=== PATIENT | female | born 1975 | race Caucasian/White ===

== ENCOUNTER 2017-03-25 17:25 | Emergency (ER) | payer OTHER ==
[~2017-03-25] VITALS: Ht 170.2 cm; Wt 77.0 kg
[~2017-03-25 17:25] MED LIST: CELE20TA PO
[2017-03-25 17:42] VITALS: BP 131/72; PULSE 72; RESP 16; TEMP 99; O2SAT 100
--- NOTE | 2017-03-25 18:42 | PD ---
HPI Chief Complaint: Musculoskeletal Complaint Time Seen by Provider: 18:37 Travel History International Travel<30 days: No Contact w/Intl Traveler<30days: No Traveled to known affect area: No History of Present Illness HPI Patient presents with complaints of nighttime muscle cramping. Denies any nausea vomiting or diarrhea or other cause for a loss of electrolytes. Additionally reports concerns of lymph nodes in the right axillary and right hip. Denies fever. Positive sick contacts. No new rashes. Denies any new chest pain shortness of breath urinary or bowel symptoms. History of gastric sleeve. PFSH Past Medical History Anxiety: No Depression: Yes Heart Rhythm Problems: No Cancer: No Cardiovascular Problems: Yes High Cholesterol: No Chemotherapy: No Chest Pain: No Congestive Heart Failure: No Diminished Hearing: No Endocrine: No Genitourinary: No Hypertension: Yes Immune Disorder: No Musculoskeletal: No Neurologic: No Psychiatric: Yes Reproductive: No Respiratory: No Radiation Therapy: No Influenza Vaccination: No ?: Not : 4 Para: 4 Past Surgical History Abdominal Surgery: Yes (GASTRIC SLEAVE 07/2016) Appendectomy: Yes Section: Yes (1 ) Cholecystectomy: Yes Gynecologic Surgery: Yes (C SECTION X 1) Other Surgery: Yes (APPENDECTOMY) Social History Alcohol Use: Yes Tobacco Use: Yes Substance Use: No Allergies-Medications (Allergen,Severity, Reaction): Coded Allergies: No Known Allergies (Unverified Adverse Reaction, Unknown, 03/25/17) Reported Meds & Prescriptions Reported Meds & Active Scripts Active No Active Prescriptions or Reported Medications Review of Systems General / Constitutional: No: Fever Eyes: No: Visual changes HENT: No: Headaches Cardiovascular: No: Chest Pain or Discomfort Respiratory: No: Shortness of Breath Gastrointestinal: No: Abdominal Pain Genitourinary: No: Dysuria Musculoskeletal: No: Pain Skin: No Rash Neurologic: No: Weakness Psychiatric: No: Depression Endocrine: No: Polydipsia Hematologic/Lymphatic: No: Easy Bruising Physical Exam Narrative GENERAL: Well-nourished, well-developed patient. SKIN: Focused skin assessment warm/dry. HEAD: Normocephalic. Examination of the right axillary region and right hip reveals no palpable lymph nodes erythema edema or tenderness EYES: No scleral icterus. No injection or drainage. NECK: Supple, trachea midline. No JVD or lymphadenopathy. CARDIOVASCULAR: Regular rate and rhythm without murmurs, gallops, or rubs. RESPIRATORY: Breath sounds equal bilaterally. No accessory muscle use. GASTROINTESTINAL: Abdomen soft, non-tender, nondistended. MUSCULOSKELETAL: No cyanosis, or edema. BACK: Nontender without obvious deformity. No CVA tenderness. Data Data Last Documented VS Vital Signs Date Time Temp Pulse Resp B/P (MAP) Pulse Ox O2 Delivery O2 Flow Rate FiO2 03/25/17 17:42 99.0 72 16 131/72 (91) 100 Orders Orders Complete Blood Count With Diff (03/25/17 18:37) Comprehensive Metabolic Panel (03/25/17 18:37) Sodium Chlor 0.9% 1000 Ml Inj (Ns 1000 M (03/25/17 18:45) Cyclobenzaprine (Flexeril) (03/25/17 19:15) Ketorolac Inj (Toradol Inj) (03/25/17 19:15) MDM Medical Decision Making Medical Screen Exam Complete: Yes Emergency Medical Condition: Yes Differential Diagnosis Muscle spasms, lymphadenopathy, right hip osteoarthritis, right shoulder osteoarthritis Narrative Course Assessment and plan discussed with patient and at bedside. Discussed the use of tonic water with quinine however patient is restricted from carbonated fluids. Discussed treatment of osteoarthritis. Patient is restricted from NSAID use. Physician Communication Physician Communication Case discussed and care transferred to Dr. Thalia Brock No Active Prescriptions or Reported Meds Isac Razo MD Mar 25, 2017 18:42
[2017-03-25] MEDS ORDERED: SODIUM CHLOR 0.9% 1000 ML INJ 1,000 ML IV ONE (18:45)
--- NOTE | 2017-03-25 19:11 | PD ---
Physical Exam Date Seen by Provider: Mar 25, 2017 Time Seen by Provider: 19:10 Narrative Accepted in transfer of care from Dr. Razo Data Data Last Documented VS Vital Signs Date Time Temp Pulse Resp B/P (MAP) Pulse Ox O2 Delivery O2 Flow Rate FiO2 03/25/17 20:03 83 16 133/65 (87) 99 Room Air 03/25/17 17:42 99.0 Orders Orders Complete Blood Count With Diff (03/25/17 18:37) Comprehensive Metabolic Panel (03/25/17 18:37) Sodium Chlor 0.9% 1000 Ml Inj (Ns 1000 M (03/25/17 18:45) Cyclobenzaprine (Flexeril) (03/25/17 19:15) Ketorolac Inj (Toradol Inj) (03/25/17 19:15) Ed Discharge Order (03/25/17 20:20) Calcium Carbonate Chew (Tums Chew) (03/25/17 20:30) Labs Laboratory Tests Test 03/25/17 18:55 White Blood Count 7.7 TH/MM3 Red Blood Count 4.74 MIL/MM3 Hemoglobin 12.2 GM/DL Hematocrit 37.9 % Mean Corpuscular Volume 79.9 FL Mean Corpuscular Hemoglobin 25.8 PG Mean Corpuscular Hemoglobin Concent 32.3 % Red Cell Distribution Width 16.0 % Platelet Count 257 TH/MM3 Mean Platelet Volume 8.0 FL Neutrophils (%) (Auto) 54.6 % Lymphocytes (%) (Auto) 35.3 % Monocytes (%) (Auto) 7.3 % Eosinophils (%) (Auto) 2.3 % Basophils (%) (Auto) 0.5 % Neutrophils # (Auto) 4.2 TH/MM3 Lymphocytes # (Auto) 2.7 TH/MM3 Monocytes # (Auto) 0.6 TH/MM3 Eosinophils # (Auto) 0.2 TH/MM3 Basophils # (Auto) 0.0 TH/MM3 CBC Comment DIFF FINAL Differential Comment Blood Urea Nitrogen 21 MG/DL Creatinine 0.65 MG/DL Random Glucose 81 MG/DL Total Protein 6.7 GM/DL Albumin 3.5 GM/DL Calcium Level 8.2 MG/DL Alkaline Phosphatase 59 U/L Aspartate Amino Transf (AST/SGOT) 10 U/L Alanine Aminotransferase (ALT/SGPT) 11 U/L Total Bilirubin 0.8 MG/DL Sodium Level 139 MEQ/L Potassium Level 4.0 MEQ/L Chloride Level 107 MEQ/L Carbon Dioxide Level 24.2 MEQ/L Anion Gap 8 MEQ/L Estimat Glomerular Filtration Rate 100 ML/MIN [facility] Medical Record Reviewed: Yes Supervised Visit with LG: No Interpretation(s) CBC & BMP Diagram 03/25/17 18:55 Total Protein 6.7, Albumin 3.5, Calcium Level 8.2 L, Alkaline Phosphatase 59, Aspartate Amino Transf (AST/SGOT) 10 L, Alanine Aminotransferase (ALT/SGPT) 11, Total Bilirubin 0.8 Vital Signs Date Time Temp Pulse Resp B/P (MAP) Pulse Ox O2 Delivery O2 Flow Rate FiO2 03/25/17 20:03 83 16 133/65 (87) 99 Room Air 03/25/17 17:42 99.0 72 16 131/72 (91) 100 Differential Diagnosis Accepted in transfer of care from Dr. Razo; please refer to his dictation Narrative Course Accepted in transfer of care from Dr. Razo Diagnosis Primary Impression: Bursitis Qualified Codes: M70.71 - Other bursitis of hip, right hip Additional Impressions: Fibrocystic breast changes Qualified Codes: N60.11 - Diffuse cystic mastopathy of right breast Hypocalcemia Referrals: Primary Care Physician 1 day Patient Instructions: General Instructions Departure Forms: Tests/Procedures, Work Release Special Instructions: no work x 1 day Additional Instruction: Increase fluid hydration May use moist heating pad intermittently to affected areas Complete steroid taper as per vitamin Follow-up with your primary care provider call office name to schedule follow- up appointment No work times one day Return to emergency for free concerns or change in condition Add calcium containing foods and beverages to dietary intake Med/Other Pt SpecificInfo: Prescription(s) given Scripts Methocarbamol (Robaxin) 750 Mg Tab 750 MG PO Q6HR for Muscle Spasm, #12 TAB 0 Refills Prov: Jillian Vásqeuz MD 03/25/17 Methylprednisolone Dosepak (Medrol Dosepak) 4 Mg Dspk 4 MG PO DIRECTED, #1 DSPK 0 Refills Per Pharmacist direction Prov: Jillian Vásquez MD 03/25/17 Disposition: 01 DISCHARGE HOME Condition: Stable Jillian Vásquez MD Mar 25, 2017 19:11
[2017-03-25] MEDS ORDERED: KETOROLAC TROMETHAMINE 60 MG/2 ML (IM) VIAL IM ONE (19:15)
[2017-03-25] MEDS ORDERED: CYCLOBENZAPRINE HCL 10 MG TAB PO ONE (19:15)
[2017-03-25 19:34] LABS: AUTOMATED NEUTROPHIL # 4.2 TH/MM3 (1.8-7.7); BASOPHIL % 0.5 % (0.0-2.0); EOSINOPHIL # 0.2 TH/MM3 (0-0.4); EOSINOPHIL % 2.3 % (0.0-4.0); HEMATOCRIT 37.9 % (35.0-46.0); HEMOGLOBIN 12.2 GM/DL (11.6-15.3); LYMPH % 35.3 % (9.0-44.0); LYMPHOCYTE # 2.7 TH/MM3 (1.0-4.8); MEAN CELL VOLUME 79.9 FL (80.0-100.0); MEAN CORPUSCULAR HEMOGLOBIN 25.8 PG (27.0-34.0); MEAN CORPUSCULAR HGB CONC 32.3 % (32.0-36.0); MONO % 7.3 % (0.0-8.0); MONOCYTE # 0.6 TH/MM3 (0-0.9); NEUT % 54.6 % (16.0-70.0); PLATELET COUNT 257 TH/MM3 (150-450); RED BLOOD COUNT 4.74 MIL/MM3 (4.00-5.30); WHITE BLOOD COUNT 7.7 TH/MM3 (4.0-11.0)
[2017-03-25 19:41] LABS: CHLORIDE 107 MEQ/L (98-107); SODIUM (NA) 139 MEQ/L (136-145)
[2017-03-25 19:45] LABS: CALCIUM 8.2 MG/DL (8.5-10.1)
[2017-03-25 19:46] LABS: ALBUMIN 3.5 GM/DL (3.4-5.0); BICARBONATE 24.2 MEQ/L (21.0-32.0); BLOOD UREA NITROGEN 21 MG/DL (7-18); GLUCOSE,RANDOM 81 MG/DL (74-106)
[2017-03-25 19:49] LABS: ALT (GPT) 11 U/L (10-53); AST (GOT) 10 U/L (15-37); CREATININE 0.65 MG/DL (0.50-1.00); GLOMERULAR FILTRATION RATE 100 ML/MIN (>89)
[2017-03-25 19:50] LABS: TOTAL BILIRUBIN ADULT 0.8 MG/DL (0.2-1.0); TOTAL PROTEIN 6.7 GM/DL (6.4-8.2)
[2017-03-25 19:52] LABS: ALKALINE PHOSPHATASE 59 U/L (45-117)
[2017-03-25 20:03] VITALS: BP 133/65; PULSE 83; RESP 16; O2SAT 99
[2017-03-25] MEDS ORDERED: ROBA750T PO (20:23)
[2017-03-25] MEDS ORDERED: MEDR4PAK PO (20:23)
[2017-03-25] MEDS ORDERED: CALCIUM CARBONATE 500 MG CHEWABLE TAB CHEW ONE (20:30)
== END 2017-03-25 20:33 | disposition home or self-care (01) ==
LOC: PHED 17:25
DX: M70.71 Other bursitis of hip, right hip (principal); N60.11 Diffuse cystic mastopathy of right breast; E83.51 Hypocalcemia; F32.9 Major depressive disorder, single episode, unspecified; I10 Essential (primary) hypertension; Z72.0 Tobacco use
CPT/HCPCS: 80053; 85025; 96360; 96372; 99284; J1885; J7030

== ENCOUNTER 2017-07-25 17:05 | Emergency (ER) | payer OTHER ==
[~2017-07-25 17:05] MED LIST changes: -CELE20TA PO; +MEDR4PAK PO; +ROBA750T PO
[2017-07-25 17:23] VITALS: BP 142/85; PULSE 100; TEMP 100; O2SAT 100
[2017-07-25] MEDS ORDERED: ACETAMINOPHEN 500 MG CPLT PO ONE (18:00)
[2017-07-25] MEDS ORDERED: AMOX875T PO (18:37)
[2017-07-25] MEDS ORDERED: ACETAMINOPHEN/HYDROcodone 325 MG/7.5 MG TAB PO ONE (19:15)
--- NOTE | 2017-07-25 19:20 | PD ---
HPI Chief Complaint: ENT Complaint Time Seen by Provider: 19:10 Travel History International Travel<30 days: No Contact w/Intl Traveler<30days: No Traveled to known affect area: No History of Present Illness HPI Patient is a 41-year-old female presenting to emerge for evaluation of right ear pain. Patient states started 3 days ago, she reports 10 out of 10 pain, she described as constant, aching and throbbing. Patient reports subjective fevers and chills. She states the pain radiates into her neck. Patient reports that she was prescribed amoxicillin and ofloxacin drops 2 days ago and has been compliant with these medications. She states the pain persists despite antibiotic therapy. She denies any significant past medical history. Symptom onset was gradual, symptoms are moderate in nature. There are no alleviating factors. PFSH Past Medical History Depression: Yes Cardiovascular Problems: Yes Hypertension: Yes ?: Not : 4 Para: 4 Past Surgical History Abdominal Surgery: Yes (GASTRIC SLEAVE 07/2016) Appendectomy: Yes Section: Yes (1 ) Cholecystectomy: Yes Gynecologic Surgery: Yes (C SECTION X 1) Other Surgery: Yes (APPENDECTOMY) Social History Alcohol Use: Yes Tobacco Use: Yes Substance Use: No Allergies-Medications (Allergen,Severity, Reaction): Coded Allergies: No Known Allergies (Unverified Adverse Reaction, Unknown, 07/25/17) Reported Meds & Prescriptions Reported Meds & Active Scripts Active Reported Amoxicillin 875 Mg Tab 875 Mg PO BID Review of Systems Except as stated in HPI: all other systems reviewed are Neg General / Constitutional: Positive: Fever, Chills HENT: Positive: Ear Discharge, Earache Physical Exam Narrative GENERAL: Well-developed, well-nourished, alert female. Presenting in no acute distress, appears uncomfortable. SKIN: Warm and dry. Erythema noted to the postauricular area on the right. HEAD: Normocephalic. EYES: No scleral icterus. No injection or drainage. EARS: Bilateral pinnae and left external canal appears within normal limits. Left tympanic membrane without erythema, dullness or perforation. Right tympanic membrane is not completely visualized. Right external ear canal with purulent drainage, erythema and edema noted. NECK: Supple, trachea midline. No JVD or lymphadenopathy. CARDIOVASCULAR: Regular rate and rhythm without murmurs, gallops, or rubs. RESPIRATORY: Breath sounds equal bilaterally. No accessory muscle use. GASTROINTESTINAL: Abdomen soft, non-tender, nondistended. MUSCULOSKELETAL: No cyanosis, or edema. BACK: Nontender without obvious deformity. No CVA tenderness. Data Data Last Documented VS Vital Signs Date Time Temp Pulse Resp B/P (MAP) Pulse Ox O2 Delivery O2 Flow Rate FiO2 07/25/17 17:23 100.0 100 142/85 (104) 100 Orders Orders Acetaminophen (Tylenol) (07/25/17 18:00) Ct Temporal Bone W/O Iv Cont (07/25/17 ) Ed Urine Pregnancytest Poc (07/25/17 19:15) Acetamin-Hydrocod 325-7.5 Mg ([place] 7.5 (07/25/17 19:15) MDM Medical Decision Making Medical Screen Exam Complete: Yes Emergency Medical Condition: Yes Interpretation(s) Last Impressions Temporal Bone CT 07/25/17 0000 Signed Impressions: CONCLUSION: 1. Diffuse mucosal thickening in the right external auditory canal characteris tic for otitis externa. 2. Mild mucosal thickening is seen around the ossicles in the right epitympanic recess. This suggests early development of a cholesteatoma. Vital Signs Date Time Temp Pulse Resp B/P (MAP) Pulse Ox O2 Delivery O2 Flow Rate FiO2 07/25/17 17:23 100.0 100 142/85 (104) 100 Differential Diagnosis Otitis media versus otitis externa versus mastoiditis versus other Narrative Course Patient is a 41-year-old female presenting with 3 days of right ear pain. Exam is consistent with otitis externa, despite compliance with antibiotic therapy patient continues to have increasing pain. CT scan of the temporal bone ordered and pending. Patient be given Lortab for pain. CT the temporal bone shows otitis externa as well as possible cholesteatoma. Patient will be changed to Augmentin and ciprofloxacin eardrops. An ear wick will be placed. Patient will be given first dose of ciprofloxacin now as well as Augmentin. Patient will be discharged home with a short course of oral pain medication. She is to follow-up with her primary doctor or with an ear, nose, throat specialist. Patient was encouraged to allow time for the antibiotics to work. She was reassured at this time. She is encouraged return to emergency department for any new worsening symptoms. Patient verbalized understanding of these instructions. Patient stable for discharge. Diagnosis Primary Impression: Otitis externa Qualified Codes: H60.391 - Other infective otitis externa, right ear Referrals: Ear / Nose / Throat Specialist 1 week Primary Care Physician 2 days Patient Instructions: General Instructions, Otitis Externa (ED) Additional Instructions: Start Augmentin, discontinue amoxicillin Start ciprofloxacin eardrops Follow-up with ear, nose, throat specialist Follow-up with your primary doctor Complete full course of antibiotics as prescribed Do not drive or operate machinery or taking narcotic pain medication Return to emergency department for any new or worsening symptoms Med/Other Pt SpecificInfo: Prescription(s) given Scripts Ciprofloxacin Opth Drops (Ciprofloxacin Opth Drops) 0.3% Soln 2 DROP RIGHT EAR BID for Infection for 14 Days, #1 BOTTLE 0 Refills while awake x 14 days. Prov: Maria Eugenia Lott 07/25/17 Ibuprofen (Ibuprofen) 800 Mg Tab 800 MG PO Q6HR Y for PAIN, #40 TAB 0 Refills Prov: Maria Eugenia Lott 07/25/17 Oxycodone-Acetaminophen (Percocet) 5-325 mg Tab 1 TAB PO Q6H Y for PAIN, #10 TAB 0 Refills Prov: Maria Eugenia Lott 07/25/17 Amoxicillin-Clavulanate (Augmentin) 875-125 Mg Tab 1 TAB PO BID for Infection, #20 TAB 0 Refills Prov: Maria Eugenia Lott 07/25/17 Disposition: 01 DISCHARGE HOME Condition: Stable Maria Eugenia Lott July 25, 2017 19:20
--- NOTE | 2017-07-25 20:16 | RADRPT ---
EXAM DATE: 07/25/2017 8:06 PM EDT AGE/SEX: 41 years / Female INDICATIONS: Right ear pain. CLINICAL DATA: This is the patient's initial encounter. Patient reports that signs and symptoms have been present for 2 days and indicates a pain score of 8/10. MEDICAL/SURGICAL HISTORY: Hypertension. None. RADIATION DOSE: 52.84 CTDI (mGy) COMPARISON: No prior [facility] exams available for comparison. TECHNIQUE: Thin section acquisition was performed without contrast in the coronal and axial planes u sing a multirow detector CT scanner. Using automated exposure control and adjustment of the mA and/o r kV according to patient size, radiation dose was kept as low as reasonably achievable to obtain opt imal diagnostic quality images. FINDINGS: TEMPORAL BONE Ossicles: The ossicles are intact. . There is some mild mucosal thickening surrounding the ossicles in the middle ear on the right side. The ossicles on the left side are surrounded by air. Mastoid Air Cells: Well aerated. No sclerotic or opacified air cells are seen. The aditus is intac t. Middle Ear: There is mild mucosal thickening surrounding the ossicles in the right middle ear. The l eft middle ear is within normal limits. Labyrinth: The cochlea and semicircular canals are normal in configuration without sclerosis. Internal Acoustic Canal: Normal in size without erosion. The cerebellar-pontine angle is intact. Jugular Fossa: Normal in size and position. External Acoustic Canal: There is diffuse mucosal thickening filling the right external auditory can al. The left external auditory canal is clear. CONCLUSION: 1. Diffuse mucosal thickening in the right external auditory canal characteristic for otitis externa . 2. Mild mucosal thickening is seen around the ossicles in the right epitympanic recess. This suggests early development of a cholesteatoma. Electronically signed by: Chris Parra MD 07/25/2017 8:15 PM EDT
[2017-07-25] MEDS ORDERED: CIPR0.3S2 RIGHT EAR ×2 (20:25→20:26)
[2017-07-25] MEDS ORDERED: IBUP1TAB7 PO (20:25)
[2017-07-25] MEDS ORDERED: AUGM875T3 PO (20:25)
[2017-07-25] MEDS ORDERED: PERC5TAB12 PO (20:25)
[2017-07-25] MEDS ORDERED: AMOXICILLIN/CLAVULANATE K 875 MG TAB PO ONE (20:30)
[2017-07-25] MEDS ORDERED: CIPROFLOXACIN 0.3% OPTH SOLN 2.5 ML BTL RIGHT EAR SCH (20:30)
[2017-07-25] MEDS ORDERED: KETOROLAC TROMETHAMINE 60 MG/2 ML (IM) VIAL IM ONE (20:45)
== END 2017-07-25 21:19 | disposition home or self-care (01) ==
LOC: NEPK 17:05 → NEPD 21:19
DX: H60.391 Other infective otitis externa, right ear (principal); Z72.0 Tobacco use
CPT/HCPCS: 70480; 96372; 99283; J1885